=== PATIENT | male | born 1980 | race Caucasian/White ===

== ENCOUNTER 2025-02-07 10:52 | Emergency (ER) | payer OTHER ==
[~2025-02-07] VITALS: Ht 180.3 cm; Wt 139.3 kg
[~2025-02-07 10:52] MED LIST: ATARAX,VISTARIL50 MG PO; METHOCARBAMOL750 M1 PO; NKHM; NOVAPLUS V0.09 MG/Ac INH; PREDNISONE20 MG PO; THERA-TABS1 EACH PO; Ventolin 02.5 MG/3 M INH; ZOFRAN 4 MG ED2 TAB PO
[2025-02-07] MEDS ORDERED: IOHEXOL 350 MG/ML 100 ML VIAL IV ONE (11:30)
[2025-02-07] MEDS ORDERED: SODIUM CHLORIDE 0.9% 100 ML BAG IV ONE (11:30)
[2025-02-07 11:41] LABS: BASO # 0.0 10*3/uL (0.0-0.1); BASO % 0.5 % (0.0-1.0); EOS # 0.1 10*3/uL (0.0-0.4); EOS % 1.6 % (1.0-4.0); MEAN CELL VOLUME 93.8 fl (80.0-94.0); MEAN CORPUSCULAR HGB 30.2 pg (27.0-31.0); MEAN PLATELET VOLUME 9.0 fl (9.6-12.3); MONO # 0.6 10*3/uL (0.1-1.0); MONO % 11.1 % (3.0-9.0); NEUT # 3.1 10*3/uL (2.3-7.9); NEUT % 56.7 % (47.0-73.0); NUCLEATED RED BLOOD CELL 0.0 % (0.0-0.0); NUCLEATED RED BLOOD CELL 0.0 10*3/uL (0.0-0.0); PLATELET COUNT AUTOMATED 194 10*3/uL (130-400); RED CELL DISTRI WIDTH 12.6 % (0-14.5)
[2025-02-07 11:53] LABS: ACT PARTIAL THROMBO TIME 29.7 SECONDS (20.0-32.1)
[2025-02-07 12:02] LABS: BUN 12 mg/dl (9-23); SGPT/ALT 62 U/L (5-49)
== END 2025-02-07 15:30 | disposition home or self-care (01) ==
LOC: ED 10:52
PROVIDERS: Nurse Practitioner Family
DX: K76.0 Fatty (change of) liver, not elsewhere classified (principal); R04.2 Hemoptysis; R14.0 Abdominal distension (gaseous); R05.9 Cough, unspecified; R22.42 Localized swelling, mass and lump, left lower limb; R22.41 Localized swelling, mass and lump, right lower limb; F17.200 Nicotine dependence, unspecified, uncomplicated; Z88.0 Allergy status to penicillin